=== PATIENT | male | born 1960 | race Caucasian/White ===

== ENCOUNTER 2017-06-07 00:10 | Emergency (ER) | payer BC ==
[~2017-06-07] VITALS: Ht 177.8 cm; Wt 83.0 kg
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
[2017-06-07] MEDS ORDERED: METOCLOPRAMIDE HCL 10 MG/2 ML VIAL IV ONE (00:30)
[2017-06-07] MEDS ORDERED: FAMOTIDINE/PF INJ 20 MG/2 ML VIAL IV ONE ×2 (00:30→00:37)
--- NOTE | 2017-06-07 00:30 | NUR ---
STARTED A SALINE LOCK ON THE LAC G18, BLOOD DRAWN AND SENT TO LAB.
[2017-06-07] MEDS ORDERED: METOCLOPRAMIDE HCL 10 MG/2 ML VIAL ONE (00:37)
--- NOTE | 2017-06-07 00:42 | NUR ---
MEDICATED PATIENT ORDERED BY DR DUBOSE.
[2017-06-07 00:57] LABS: BASOPHILS % (AUTO) 0.3 % (0.0-2.0); EOSINOPHILS % (AUTO) 0.3 % (0.0-6.0); HEMATOCRIT 45 % (39-51); HEMOGLOBIN 15.5 g/dL (13.5-17.5); LYMPHOCYTES # (AUTO) 1.3 /CMM (0.8-4.8); MEAN CORPUSCULAR HEMOGLOBIN 30 PG (26.0-33.0); MEAN CORPUSCULAR HGB CONC 34 g/dl (31.0-36.0); MEAN CORPUSCULAR VOLUME 86 fL (80-96); MONOCYTES # (AUTO) 0.4 /CMM (0.1-1.30); MONOCYTES % (AUTO) 3.6 % (2.0-12.0); NEUTROPHILS # (AUTO) 9.8 /CMM (1.8-8.9); NEUTROPHILS % (AUTO) 84.8 % (43.0-81.0); PLATELET COUNT (AUTO) 236 /CMM (150-450); RDW COEFFICIENT OF VARIATION 14.2 (11.5-15.0); RED BLOOD CELL COUNT(AUTO) 5.24 MIL/uL (4.5-6.0); WHITE BLOOD COUNT (AUTO) 11.5 K/uL (4.3-11.0)
[2017-06-07] MEDS ORDERED: MORPHINE SULFATE INJ 4 MG/ML DISP.SYRIN ONE ×2 (00:59→01:36)
[2017-06-07] MEDS ORDERED: MORPHINE SULFATE INJ 2 MG/ML DISP.SYRIN ONE (00:59)
[2017-06-07 01:10] LABS: CALCIUM, SERUM 9.3 mg/dL (8.5-10.1); CARBON DIOXIDE 26 mmol/L (21-32); CHLORIDE 106 mmol/L (98-107); CREATININE 1.1 mg/dL (0.6-1.3); GLUCOSE 133 mg/dL (74-106); POTASSIUM 3.9 mmol/L (3.5-5.1); SODIUM SERUM 140 mmol/L (136-145); UREA NITROGEN, BLOOD 19 mg/dL (7-18)
[2017-06-07 01:11] LABS: INR 0.96 (0.87-1.13)
[2017-06-07 01:15] LABS: TROPONIN I < 0.017 ng/mL (0.00-0.056)
[2017-06-07 01:16] LABS: ALANINE AMINOTRANSFERASE 31 U/L (12-78); ALBUMIN 4.2 g/dL (3.4-5.0); ALKALINE PHOSPHATASE 81 U/L (46-116); ASPARTATE AMINOTRANSFERASE 16 U/L (15-37); BILIRUBIN,DIRECT 0.1 mg/dL (0.0-0.2); BILIRUBIN,TOTAL 0.5 mg/dL (0.2-1.0); LIPASE 161 U/L (73-393); TOTAL PROTEIN, SERUM 7.6 g/dL (6.4-8.2)
[2017-06-07] MEDS ORDERED: MAG HYDROX/AL HYDROX/SIMETH 30 ML UDC ONE (01:22)
[2017-06-07] MEDS ORDERED: LIDOCAINE VISCOUS 2% UD 15 ML UDC ONE (01:22)
[2017-06-07] MEDS ORDERED: LIDOCAINE VISCOUS 2% UD 15 ML UDC MM ONE (01:30)
[2017-06-07] MEDS ORDERED: MORPHINE SULFATE INJ 2 MG/ML DISP.SYRIN IV ONE ×2 (01:30→02:00)
[2017-06-07] MEDS ORDERED: MAG HYDROX/AL HYDROX/SIMETH 30 ML UDC PO ONE (01:30)
[2017-06-07] MEDS ORDERED: HYDROMORPHONE INJ 2 MG/ML DISP.SYRIN ONE (03:08)
[2017-06-07] MEDS ORDERED: HYDROMORPHONE 1 MG/1 ML DISP.SYRIN IV ONE (03:30)
--- NOTE | 2017-06-07 03:30 | NUR ---
PATIENT TO CAT SCAN.
--- NOTE | 2017-06-07 04:55 | NUR ---
IV removed. Catheter intact and site benign. Pressure and 4x4 applied to site. No bleeding noted. Patient discharged to home in stable condition. Written and verbal after care instructions given. Patient verbalizes understanding of instruction. Patient is ambulatory with steady gait, accompanied by friend going home. Instructed not to drive. No further complaints.
[2017-06-07 04:56] VITALS: BP 128/81
== END 2017-06-07 04:57 | disposition home or self-care (01) ==
LOC: ER 00:12
DX: K21.9 Gastro-esophageal reflux disease without esophagitis (principal)
CPT/HCPCS: 36415; 71010; 74176; 80048; 80076; 83690; 84484 ×2; 85025; 85730; 93005 ×2; 96374; 96375; 96376; 99285; A4606; J1170; J2270 ×3; J2765; J3490; Z7610

== ENCOUNTER 2019-04-06 02:51 | Emergency (ER) | payer BC ==
[~2019-04-06] VITALS: Ht 177.8 cm; Wt 84.4 kg
--- NOTE | 2019-04-06 03:00 | NUR ---
BIBS FOR L INDEX FINGER PAIN, REDNESS AND SWELLING. WARM TO TOUCH. SKIN INTACT.
[2019-04-06] MEDS ORDERED: CEFTRIAXONE 1GM BAG (ER ONLY) 50 ML IV ONE (03:05)
[2019-04-06] MEDS ORDERED: LIDOCAINE 2% 20 ML MDV ONE (03:06)
[2019-04-06] MEDS ORDERED: SODIUM BICARBONATE 5 ML VIAL ONE (03:06)
[2019-04-06] MEDS ORDERED: CEFTRIAXONE 1 G in IV D5W 50 ML IV ONE (03:30)
[2019-04-06] MEDS ORDERED: LIDOCAINE 2% 20 ML MDV TP ONE (03:30)
[2019-04-06] MEDS ORDERED: SODIUM BICARBONATE 5 ML VIAL TP ONE (03:30)
[2019-04-06] MEDS ORDERED: SULFAMETH/TRIMETH 800/160 MG 1 UDTAB TABLET ONE (03:43)
--- NOTE | 2019-04-06 03:52 | NUR ---
PT ALREADY ON BACTRIM DC FROM HOME. PER MD TO HOLD THE DOSE AND CANCE THE PRISCRIPTION. IV removed. Catheter intact and site benign. Pressure and 4x4 applied to site. No bleeding noted. Patient discharged to home in stable condition. Written and verbal after care instructions given. Patient verbalizes understanding of instruction.
[2019-04-06 03:54] VITALS: BP 138/66
[2019-04-06] MEDS ORDERED: SULFAMETH/TRIMETH 800/160 MG 1 UDTAB TABLET PO ONE (04:00)
== END 2019-04-06 03:55 | disposition home or self-care (01) ==
LOC: ER 02:53
DX: L03.012 Cellulitis of left finger (principal); E78.00 Pure hypercholesterolemia, unspecified
CPT/HCPCS: 10060; 87070; 87077; 87186; 96365; 99284; A6403; J0696; J3490 ×2; J7060